=== PATIENT | female | born 1980 | race African-American/Black ===

== ENCOUNTER 2021-11-22 07:26 | Emergency (ER) | payer OTHER, BC ==
[2021-11-22 08:20] LABS: #Eosinphils 0.1 thou/uL (0.0-0.7); #Lymphocytes 1.3 thou/uL (1.20-3.40); #Monocytes 0.3 thou/uL (0.11-0.59); #Neutrophils 1.9 thou/uL (1.40-6.50); %Basophils 0.9 % (0.0-1.0); %Lymphocytes 35.1 % (21.0-51.0); %Monocytes 9.4 % (0.0-10.0); %Neutrophils 52.6 % (42.0-75.0); Mean Corpuscular HGB CONC 30.6 g/dL (32.0-36.0); Mean Corpuscular Hemoglobin 24.5 pg (27.0-31.0); Mean Corpuscular Volume 80.1 fL (78.0-98.0); Mean Platelet Volume 10.6 fL (7.4-10.4); Platelet Count 247 thou/uL (130-400); RBC Distribution Width 13.3 % (11.5-14.5); Red Blood Cell (RBC) Count 4.49 mill/uL (4.20-5.40); White Blood Cell (WBC) Count 3.7 thou/uL (4.8-10.8)
[2021-11-22] MEDS ORDERED: Orphenadrine Citrate 60 MG/2 ML VIAL ONE (08:20)
[2021-11-22] MEDS ORDERED: Fentanyl 100 MCG/2 ML VIAL ONE (08:20)
[2021-11-22 08:28] LABS: ALT (SGPT) 8 U/L (8-55); AST (SGOT) 13 U/L (5-34); Albumin 4.1 g/dL (3.5-5.0); Alkaline Phosphatase 41 U/L (40-110); Anion Gap 12 mmol/L (10-20); BUN (Urea Nitrogen) 10 mg/dL (7.0-18.7); Bilirubin, Total 0.4 mg/dL (0.2-1.2); Calc. Creatinine Clearance 0 mL/min (70-130); Calcium 8.9 mg/dL (7.8-10.44); Carbon Dioxide 24 mmol/L (22-29); Chloride 108 mmol/L (98-107); Globulin 2.7 g/dL (2.4-3.5); Glucose 117 mg/dL (70-105); Potassium 4.1 mmol/L (3.5-5.1); Protein, Total 6.8 g/dL (6.0-8.3); Sodium 140 mmol/L (136-145)
[2021-11-22 08:36] LABS: Anisocytosis SLIGHT = 6-15 cells (100X) (0-5/hpf); Platelet Morphology Comment Appears Adequate
[2021-11-22 08:38] LABS: BHCG - Serum Negative (NEGATIVE); Pregs Control Background? CLEAR/WHITE (CLR/WHITE); Pregs Control Bar Appear? YES (CONTROL BAR)
[2021-11-22 08:56] LABS: CKMB 1.9 ng/mL (0-6.6)
[2021-11-22] MEDS ORDERED: Aspirin Chewable 81 MG TAB ONE (10:00)
[2021-11-22] MEDS ORDERED: Iopamidol 370 76% 100 ML VIAL ONE (10:50)
[2021-11-22 12:00] LABS: CKMB 4.5 ng/mL (0-6.6)
[2021-11-22 20:49] LABS: SARS-CoV-2 PCR by NAA Not Detected (NotDetected)
== END 2021-11-22 11:20 | disposition short-term general hospital (02) ==
LOC: MADERS 07:26
DX: S26.91XA Contusion of heart, unspecified with or without hemopericardium, initial encounter (principal); S50.11XA Contusion of right forearm, initial encounter; I21.4 Non-ST elevation (NSTEMI) myocardial infarction; V48.0XXA Car driver injured in noncollision transport accident in nontraffic accident, initial encounter; W22.10XA Striking against or struck by unspecified automobile airbag, initial encounter; Z20.822 Contact with and (suspected) exposure to COVID-19
CPT/HCPCS: 70450; 71045; 71260; 72125; 74177; 80053; 82553; 84484; 84703; 85025; 93005; 94760; 96372; J2360; J3010; Q9967; U0003; U0005